=== PATIENT | male | born 1970 | race Caucasian/White ===

== ENCOUNTER 2021-10-05 12:48 | Observation (INO) | payer OTHER, SELFPAY ==
[2021-10-05] VITALS (9 sets, daily range): BP systolic 127–174; BP diastolic 55–89; PULSE 65–99; RESP 12–20; TEMP 36.1–37; O2SAT 96–100; BMI 29.5
--- NOTE | 2021-10-05 | ECG_ITS ---
Test Reason : chest pain Blood Pressure : / mmHG Vent. Rate : 075 BPM Atrial Rate : 075 BPM P-R Int : 140 ms QRS Dur : 090 ms QT Int : 390 ms P-R-T Axes : 037 013 076 degrees QTc Int : 435 ms Normal sinus rhythm Normal ECG No previous ECGs available Referred By: Generic ED Physician Electronically Signed By:GAURAV THOMAS MD
--- NOTE | ~2021-10-05 | XR_ITS ---
EXAMINATION: XR CHEST CLINICAL INFORMATION: Chest pain COMPARISON: None TECHNIQUE: Portable upright AP view of the chest was obtained. FINDINGS: Lungs clear. No pneumothorax, pleural reaction, airspace consolidation, or effusion. The costophrenic sulci are clear. The heart is normal in size. The hilar and mediastinal contours are normal. No acute bony abnormality. XR/XR chest 1V IMPRESSION: Unremarkable examination.
--- NOTE | 2021-10-05 13:06 | ED_ITS ---
HPI - Chest Pain General Chief Complaint: Chest Pain Stated Complaint: chest pain Time Seen by Provider: 10/05/21 13:06 Source: patient Mode of arrival: ambulatory Limitations: no limitations History of Present Illness MD complaint: chest pain, chest heaviness and chest discomfort Onset (ago): day(s) (started Tuesday ) Timing of current episode: other (present but then when he exerts himself it gets much worse) Prior episodes: Yes Onset: during exertion Pain location: substernal and left chest Pain radiation: left arm Severity: moderate Quality: heaviness Relieving factors: rest Exacerbating factors: exertion Associated symptoms: diaphoresis and dyspnea Treatment prior to arrival: none Related Data Home Medications Medication Instructions Recorded Confirmed fenofibrate nanocrystallized 145 1 tab PO BEDTIME 10/05/21 10/05/21 mg tablet Allergies Allergy/AdvReac Type Severity Reaction Status Date / Time No Known Allergies Allergy Verified 10/05/21 13:03 Review of Systems Review of Systems: Constitutional : No Weight loss, No Fever, No Chills ENT/Mouth : No sore throat, No Rhinorrhea Eyes: No Eye Pain, No Swelling Cardiovascular : pos Chest Pain, pos SOB, no Dyspnea on Exertion, No Orthopnea, No Edema, No Palpitations Respiratory : No Cough, No Sputum Gastrointestinal : no Nausea, No Vomiting, No Diarrhea, No abdominal Pain, No Hematochezia, No Melena Genitourinary : No Dysuria, No Urinary Frequency Musculoskeletal : No joint pain, No Myalgias, No Joint Swelling Skin : No Skin Lesions, No rash Neuro : No Weakness, No Numbness, No Dizziness, No Headache Psych : No Anxiety/Panic, No Depression Heme/Lymph: No Bruising, No Lymphadenopathy Endocrine : No Polyuria, No Polydipsia All other systems reviewed and are negative [facility] Past Medical History Attestation statement: The following information was validated with the patient. Medical History (Updated 10/05/21 @ 15:48 by Marci Ceja NP) HLD (hyperlipidemia) Surgical History (Updated 10/05/21 @ 15:48 by Marci Ceja NP) No pertinent past surgical history Family History Family History (Updated 10/05/21 @ 15:47 by Marci Ceja NP) Paternal Uncle CAD (coronary artery disease) Social History Social History (Updated 10/05/21 @ 13:20 by Bertha Fuentes DO) Household Members: Spouse and Children Housing: House Patient Tobacco Use Status: Former Tobacco user Quit Date: quit 3 years ago Use of substances other than those prescribed or required for medical reasons: No Have you been hit, kicked, punched, or otherwise hurt by someone within the past year? If so, by whom?: No Do you feel safe in your current relationship?: Yes Is there a partner from a previous relationship who is making you feel unsafe no w?: No Are you made to feel afraid or neglected: No Advance Directives: Yes Advance Directives Information Provided: No Advance Directives on File: No Advance Directives Date on File: 10/05/21 Do you have thoughts of harming others: None Do you have a plan to hurt others: No Plan Recently lost weight without trying: No Nutrition Risks: No Nutritional Risk Poor oral hygiene: No service: No Current occupational status: employed Physical Exam Vital Signs: Vital Signs: Last Vital Signs Temp 96.9 F 10/05/21 19:15 Pulse 73 10/05/21 19:15 Resp 20 10/05/21 19:15 BP 156/55 H 10/05/21 19:15 Pulse Ox 100 10/05/21 19:15 BMI result Body Mass Index 29.5 Appearance: Alert. Oriented X3. No acute distress. Eyes: Pupils equal, round and reactive to light. ENT: Pharynx normal. Neck: Normal inspection. Neck supple. CVS: Normal heart rate and rhythm. Pulses normal. Respiratory: No respiratory distress. Breath sounds normal. Abdomen: Soft and non-tender. Skin: Skin warm and dry. Normal skin color. Normal skin turgor. Extremities: No lower extremity edema. No calf ttp Neuro: Oriented X 3. No motor deficit. No sensory deficit. Course Course Course Narrative: chest pain resolved with nitro Dr. Caro aware admit for serial troponins, given ASA MDM - Chest Pain MDM Narrative Medical decision making narrative: 51 yo male former smoker, HLD, + fam hx in several uncles with CAD, presents with exertional chest pain particularly when he was riding his bike on Tuesday up a hill he noted chest pain with dyspnea and diaphoresis that improved with rest. If he exerts himself the chest pain returns along with other symptoms. His symptoms are obviously concerning at this time. Will obtain labs, CXR< troponin, COVID swab - will admit for ACS rule out after discussion with cardiology. Lab Data Result diagrams: 10/05/21 15:17 10/05/21 14:09 Labs: Lab Results 10/05/21 10/05/21 10/05/21 Range/Units 13:49 13:49 13:49 WBC (4.8-10.8) X10*3/uL RBC (4.60-5.80) X10*6/uL Hgb (14.0-18.0) g/dl Hct (42.0-52.0) % MCV (80.0-98.0) fL MCH (27.0-33.0) pg MCHC (31.0-36.0) g/dl RDW (11.0-16.0) % Plt Count (160-400) X10*3/uL MPV (9.4-12.4) fL Immature Gran % (Auto) (0.0-0.4) % Neut % (Auto) (45-73) % Lymph % (Auto) (20-40) % [place] % (Auto) (2-11) % Eos % (Auto) (0-4) % Baso % (Auto) (0-2) % Lymph # (Auto) (1.2-4.9) X10*3/uL [place] # (Auto) (0.1-1.2) X10*3/uL Eos # (Auto) (0.0-0.4) X10*3/uL Baso # (Auto) (0.0-0.2) X10*3/uL Abs Immat Gran (auto) (0.00-0.03) X10*3/uL Absolute Neuts (auto) (2.0-8.3) x10*3/uL Absolute Nucleated RBC (0.0-0.012) X10*3/uL Nucleated RBC % (auto) (0.0-0.2) /100WBC PT 11.3 (9.9-13.0) SEC INR 1.0 (0.9-1.1) APTT 35.0 (24.1-38.0) SEC Sodium (135-145) mmol/L Potassium (3.3-5.1) mmol/L Chloride (96-108) mmol/L Carbon Dioxide (22-29) mmol/L Anion Gap (12-20) BUN (9-16) mg/dL Creatinine (0.5-1.4) mg/dL Estim Creat Clear Calc Estimated GFR Random Glucose (60-115) mg/dL Calcium (8.4-10.2) mg/dL Magnesium (1.6-2.6) mg/dL Total Bilirubin (0.0-1.0) mg/dL Direct Bilirubin (0.0-0.5) mg/dL AST (5-37) U/L ALT (0-40) U/L Alkaline Phosphatase (39-117) U/L Troponin I High Sens < 3.5 (<3.5-35.0) ng/L B-Natriuretic Peptide 11 (<100) pg/mL Total Protein (6.5-8.0) g/dL Albumin (3.5-5.0) g/dL COVID-19 (ANALI) Negative (Negative) COVID-19 Clin Com See Note 10/05/21 10/05/21 Range/Units 14:09 15:17 WBC 6.2 (4.8-10.8) X10*3/uL RBC 4.31 L (4.60-5.80) X10*6/uL Hgb 12.7 L (14.0-18.0) g/dl Hct 38.6 L (42.0-52.0) % MCV 89.6 (80.0-98.0) fL MCH 29.5 (27.0-33.0) pg MCHC 32.9 (31.0-36.0) g/dl RDW 12.0 (11.0-16.0) % Plt Count 328 (160-400) X10*3/uL MPV 9.8 (9.4-12.4) fL Immature Gran % (Auto) 0.2 (0.0-0.4) % Neut % (Auto) 49.0 (45-73) % Lymph % (Auto) 38.2 (20-40) % [place] % (Auto) 10.4 (2-11) % Eos % (Auto) 1.1 (0-4) % Baso % (Auto) 1.1 (0-2) % Lymph # (Auto) 2.4 (1.2-4.9) X10*3/uL [place] # (Auto) 0.6 (0.1-1.2) X10*3/uL Eos # (Auto) 0.1 (0.0-0.4) X10*3/uL Baso # (Auto) 0.1 (0.0-0.2) X10*3/uL Abs Immat Gran (auto) 0.01 (0.00-0.03) X10*3/uL Absolute Neuts (auto) 3.0 (2.0-8.3) x10*3/uL Absolute Nucleated RBC 0.000 (0.0-0.012) X10*3/uL Nucleated RBC % (auto) 0.0 (0.0-0.2) /100WBC PT (9.9-13.0) SEC INR (0.9-1.1) APTT (24.1-38.0) SEC Sodium 140 (135-145) mmol/L Potassium 4.3 (3.3-5.1) mmol/L Chloride 108 (96-108) mmol/L Carbon Dioxide 25 (22-29) mmol/L Anion Gap 11 L (12-20) BUN 16 (9-16) mg/dL Creatinine 1.04 (0.5-1.4) mg/dL Estim Creat Clear Calc 92.4 Estimated GFR > 60 Random Glucose 102 (60-115) mg/dL Calcium 9.8 (8.4-10.2) mg/dL Magnesium 2.1 (1.6-2.6) mg/dL Total Bilirubin 0.3 (0.0-1.0) mg/dL Direct Bilirubin < 0.2 (0.0-0.5) mg/dL AST 20 (5-37) U/L ALT 22 (0-40) U/L Alkaline Phosphatase 71 (39-117) U/L Troponin I High Sens (<3.5-35.0) ng/L B-Natriuretic Peptide (<100) pg/mL Total Protein 7.5 (6.5-8.0) g/dL Albumin 4.5 (3.5-5.0) g/dL COVID-19 (ANALI) (Negative) COVID-19 Clin Com ECG Data ECG #1: Attestation: I personally reviewed and interpreted this ECG as follows: ECG interpretation date: 10/05/21 ECG interpretation time: 13:06 Interpretation: Rate: 75 Rhythm: NSR [place]: normal Normal P waves. Normal WILMAN. Normal QRS complex. ST T wave : no CECY, inverted aVL qTC: normal prior studies: none The study has been interpreted contemporaneously by me. . Scores Heart Score History: -2- highly suspicious ECG: -0- normal Age: -1- >45 - <65 Risk factory: -1- 1 or 2 risk factors Troponin: -0- < or = normal limit Score: 4 Risk: 16.6% Discharge Plan Discharge Clinical Impression: Exertional angina Chest pain Qualifiers: Chest pain type: precordial pain Qualified Code(s): R07.2 - Precordial pain Patient Disposition: Admitted As Inpatient
[2021-10-05] MEDS: Aspirin 81 MG TAB.CHEW 324 MG PO (13:34)
[2021-10-05 14:09] LABS: Prothrombin Time 11.3 SEC (9.9-13.0)
[2021-10-05 14:12] LABS: COVID-19 Test Negative (Negative)
[2021-10-05 14:15] LABS: B Type Natriuretic Peptide 11 pg/mL (<100); Troponin-I High Sensitivity < 3.5 ng/L (<3.5-35.0)
[2021-10-05] MEDS: Nitroglycerin 0.4 MG TAB.SUBL SUBLINGUAL (14:29)
--- NOTE | 2021-10-05 14:39 | PHA.MEDREC ---
Pharmacy Consult ? Medication Reconciliation Pharmacy has completed the medication reconciliation. Patient only take fenofibrate at home. Radha Mejia, RanjithD
[2021-10-05 14:45] LABS: Alanine Aminotransferase 22 U/L (0-40); Albumin Level 4.5 g/dL (3.5-5.0); Alkaline Phosphatase 71 U/L (39-117); Anion Gap 11 (12-20); Aspartate Amino Transferase 20 U/L (5-37); Bilirubin Direct < 0.2 mg/dL (0.0-0.5); Bilirubin Total 0.3 mg/dL (0.0-1.0); Blood Urea Nitrogen 16 mg/dL (9-16); Calcium 9.8 mg/dL (8.4-10.2); Carbon Dioxide 25 mmol/L (22-29); Chloride 108 mmol/L (96-108); Creatinine Clr Calc Pharmacy 92.4; Estimated Glomerular Filt Rate > 60; Glucose Random 102 mg/dL (60-115); Magnesium 2.1 mg/dL (1.6-2.6); Potassium 4.3 mmol/L (3.3-5.1); Sodium 140 mmol/L (135-145); Total Protein 7.5 g/dL (6.5-8.0)
[2021-10-05 15:20] LABS: MANUAL DIFF FLAG NO
[2021-10-05 15:24] LABS: Basophils Absolute Auto 0.1 X10*3/uL (0.0-0.2); Basophils Percent Auto 1.1 % (0-2); Eosinophils Absolute Auto 0.1 X10*3/uL (0.0-0.4); Eosinophils Percent Auto 1.1 % (0-4); Hematocrit 38.6 % (42.0-52.0); Hemoglobin 12.7 g/dl (14.0-18.0); Imm Gran Abs Auto 0.01 X10*3/uL (0.00-0.03); Imm Gran Pct Auto 0.2 % (0.0-0.4); Lymphocytes Absolute Auto 2.4 X10*3/uL (1.2-4.9); Lymphocytes Percent Auto 38.2 % (20-40); Mean Corpuscular HGB Conc 32.9 g/dl (31.0-36.0); Mean Corpuscular Hemoglobin 29.5 pg (27.0-33.0); Mean Corpuscular Volume 89.6 fL (80.0-98.0); Mean Platelet Volume 9.8 fL (9.4-12.4); Monocytes Absolute Auto 0.6 X10*3/uL (0.1-1.2); Monocytes Percent Auto 10.4 % (2-11); Platelet Count 328 X10*3/uL (160-400); Red Blood Count 4.31 X10*6/uL (4.60-5.80); White Blood Count 6.2 X10*3/uL (4.8-10.8)
--- NOTE | 2021-10-05 15:44 | P.HPHOSP_ITS ---
History of Present Illness Date of Service: 10/05/21 Attending physician on admission: Ulises Owen Chief Complaint: Chest pain 51-year-old man presented to the ER with complaints of chest pain radiating to his left arm with some associated shortness of breath especially with exertion but has been pretty constant since Tuesday with no resolution but definitely worse with exertion. He reports about 10 years ago he had very similar symptoms and had a full cardiac workup which was negative however they did find that he had thyroid disease. Over the last 10 years he reports that on and off he gets this pain but it goes away but this time it has been present for almost 3 days. He denied any nausea, vomiting, diarrhea, recent illness. He was given nitroglycerin in the ER which did relieve the pain and during the exam he was chest pain-free. In the ER all of his labs were within acceptable limits including troponin of 3.5, EKG with T-wave inversions but no elevations, stable blood pressure, negative COVID, no consolidation or effusion on chest x-ray. In the ER he was given a full dose of aspirin and also the nitroglycerin. We placed on observation for further management and treatment of chest pain. Review of Systems Review of Systems: Denies any recent fever chills or decrease in appetite respiratory denies any shortness of breath coverage production cardiovascular see HPI gastrointestinal denies any dysphagia abdominal pain nausea vomiting or diarrhea genitourinary denies any dysuria frequency or hematuria musculoskeletal denies any joint pain or swelling neuropsych denies any weakness or seizures all other systems reviewed are negative [facility] Medical History (Updated 10/05/21 @ 15:48 by Marci Ceja NP) HLD (hyperlipidemia) Family History (Updated 10/05/21 @ 15:47 by Marci Ceja NP) Paternal Uncle CAD (coronary artery disease) Surgical History (Updated 10/05/21 @ 15:48 by Marci Ceja NP) No pertinent past surgical history Social History (Updated 10/05/21 @ 13:20 by Bertha Fuentes DO) Patient Tobacco Use Status: Former Tobacco user Quit Date: quit 3 years ago Use of substances other than those prescribed or required for medical reasons: No Advance Directives: Yes Advance Directives Information Provided: No Advance Directives on File: No Meds Allergies Allergy/AdvReac Type Severity Reaction Status Date / Time No Known Allergies Allergy Verified 10/05/21 13:03 Active Medications: Current Medications Acetaminophen (Acetaminophen 325 Mg Tablet) 650 mg PO Q6H PRN PRN Reason: Pain, Mild (Pain Scale 1-3) Enoxaparin Sodium (Enoxaparin Sodium 40 Mg/0.4 Ml Syringe) 40 mg SUBCUT Q24H [facility] Ondansetron HCl (Ondansetron Hcl 4 Mg/2 Ml Vial) 4 mg IVPUSH Q8H PRN PRN Reason: Nausea and Vomiting Pharmacy Consult (Consult Rx Perform Med Rec) 1 each MISCELLANE ONCE PRN PRN Reason: Consult order Sodium Chloride (0.9 % Sodium Chloride Flush 3 Ml Syringe) 3 ml IVFLUSH QSHIFT [facility] Home Medications Medication Instructions Recorded Confirmed Last Taken Type fenofibrate nanocrystallized 145 1 tab PO BEDTIME 10/05/21 10/05/21 10/04/21 History mg tablet Physical Exam Vital Signs and Narrative: Vital Signs: Last Vital Signs Temp 98.6 F 10/05/21 14:37 Pulse 85 10/05/21 14:55 Resp 15 10/05/21 14:55 BP 128/81 10/05/21 14:55 Pulse Ox 96 10/05/21 14:55 BMI result Body Mass Index 29.5 Results Labs CBC and Chem 7: 10/05/21 15:17 10/05/21 14:09 Labs: Laboratory Results - last 24 hr 10/05/21 10/05/21 10/05/21 13:49 13:49 13:49 MCV MCH MCHC RDW Plt Count MPV Immature Gran % (Auto) Neut % (Auto) Lymph % (Auto) [place] % (Auto) Eos % (Auto) Baso % (Auto) Lymph # (Auto) [place] # (Auto) Eos # (Auto) Baso # (Auto) Abs Immat Gran (auto) Absolute Neuts (auto) Absolute Nucleated RBC Nucleated RBC % (auto) PT 11.3 INR 1.0 APTT 35.0 Anion Gap Estim Creat Clear Calc Estimated GFR Random Glucose Calcium Magnesium Total Bilirubin Direct Bilirubin AST ALT Alkaline Phosphatase Troponin I High Sens < 3.5 B-Natriuretic Peptide 11 Total Protein Albumin COVID-19 (ANALI) Negative COVID-19 Clin Com See Note 10/05/21 10/05/21 14:09 15:17 MCV 89.6 MCH 29.5 MCHC 32.9 RDW 12.0 Plt Count 328 MPV 9.8 Immature Gran % (Auto) 0.2 Neut % (Auto) 49.0 Lymph % (Auto) 38.2 [place] % (Auto) 10.4 Eos % (Auto) 1.1 Baso % (Auto) 1.1 Lymph # (Auto) 2.4 [place] # (Auto) 0.6 Eos # (Auto) 0.1 Baso # (Auto) 0.1 Abs Immat Gran (auto) 0.01 Absolute Neuts (auto) 3.0 Absolute Nucleated RBC 0.000 Nucleated RBC % (auto) 0.0 PT INR APTT Anion Gap 11 L Estim Creat Clear Calc 92.4 Estimated GFR > 60 Random Glucose 102 Calcium 9.8 Magnesium 2.1 Total Bilirubin 0.3 Direct Bilirubin < 0.2 AST 20 ALT 22 Alkaline Phosphatase 71 Troponin I High Sens B-Natriuretic Peptide Total Protein 7.5 Albumin 4.5 COVID-19 (ANALI) COVID-19 Clin Com Imaging Radiologist's Impressions: Impressions Chest X-Ray 10/05/21 14:27 IMPRESSION: Unremarkable examination. Assessment and Plan (1) Chest pain: Qualifiers: Chest pain type: precordial pain Qualified Code(s): R07.2 - Precordial pain Status: Acute Plan 51-year-old man placed on observation for chest pain that has been ongoing for the last 3 days Chest pain. Seems typical with symptoms lasting 3 days fairly consistent worse with exertion Negative troponin Add aspirin and statin Cardiology to follow may need stress test Pain management Telemetry Check TSH DVT prophylaxis with Lovenox Attending Dr. Owen Full code Quality Stroke Does the patient have a stroke diagnosis?: No VTE Prior VTE?: No VTE Risk Level:: Medical - moderate - high VTE Device Contraindication: Treatment Not Indicated VTE Drug Contraindication: N/A - Med Ordered
[2021-10-05] MEDS: 0.9 % Sodium Chloride Flush 3 ML SYRINGE IVFLUSH ×2 (17:01→19:47)
--- NOTE | 2021-10-05 17:41 | MHC.CM.PN ---
JERMAIN 10/05. A&Ox4. HCP at home. HCP/ Cory Mercer ([phone]). Vax x2/Pfizer. Lives with . Employed. No DME/services. D/C plan: Home without services. to transport home. CM to follow for d/c needs.
[2021-10-05] MEDS: Atorvastatin Calcium 40 MG TABLET PO (19:45)
[2021-10-05] MEDS: Acetaminophen 325 MG TABLET 650 MG PO (19:48)
--- NOTE | 2021-10-06 | CA_ITS ---
Acquisition Time: 2021-10-06 10:48:54 Total Exercise Time: 00:05:26 Test Indications: Chest Pain Medications: Protocol: NIKHIL Max HR: 173 BPM 102% of Pred: 168 BPM Max BP: 204/088 mmHG Max Work Load: 7.0 METS Exercise stress test with exercise 5 min 26 sec of Nikhil protocol, achieving 102% MPHR, with report of 2/10 left chest tightness with discomfort radiating down his left arm, mild sob, without arrythmia, with hypertensive response to exercise with max BP 204/88, with EKG changes meeting criteria for ischemia: hortizontal to upsloping ST depression, 1 mm lead III, 1.5mm lead aVF, V3, V4, V6, 2 mm lead II, V5 which corrects by 1 min recovery. His chest and arm symptoms resolved by 7 min recovery. BP returned to baseline, 138/78 in recovery. Test reviewed with Dr Caro Referred By: Scooby Caro Overread By: RA TAVERAS
[2021-10-06 03:25] VITALS: BP 133/86; PULSE 75; RESP 18; TEMP 36.2; O2SAT 98
[2021-10-06 07:34] VITALS: BP 170/88; PULSE 76; RESP 20; TEMP 36.1; O2SAT 98
[2021-10-06 07:57] LABS: MANUAL DIFF FLAG NO
[2021-10-06 08:03] LABS: Basophils Absolute Auto 0.1 X10*3/uL (0.0-0.2); Basophils Percent Auto 0.9 % (0-2); Eosinophils Absolute Auto 0.1 X10*3/uL (0.0-0.4); Eosinophils Percent Auto 1.4 % (0-4); Hematocrit 42.1 % (42.0-52.0); Hemoglobin 13.6 g/dl (14.0-18.0); Imm Gran Abs Auto 0.01 X10*3/uL (0.00-0.03); Imm Gran Pct Auto 0.2 % (0.0-0.4); Lymphocytes Absolute Auto 3.3 X10*3/uL (1.2-4.9); Lymphocytes Percent Auto 49.5 % (20-40); Mean Corpuscular HGB Conc 32.3 g/dl (31.0-36.0); Mean Corpuscular Hemoglobin 29.2 pg (27.0-33.0); Mean Corpuscular Volume 90.3 fL (80.0-98.0); Mean Platelet Volume 9.5 fL (9.4-12.4); Monocytes Absolute Auto 0.6 X10*3/uL (0.1-1.2); Monocytes Percent Auto 8.6 % (2-11); Neutrophils Absolute Auto 2.6 x10*3/uL (2.0-8.3); Neutrophils Percent Auto 39.4 % (45-73); Platelet Count 374 X10*3/uL (160-400); Red Blood Count 4.66 X10*6/uL (4.60-5.80); Red Cell Distribution Width 12.2 % (11.0-16.0); White Blood Count 6.6 X10*3/uL (4.8-10.8)
[2021-10-06 08:41] LABS: Anion Gap 14 (12-20); Blood Urea Nitrogen 14 mg/dL (9-16); Calcium 9.7 mg/dL (8.4-10.2); Carbon Dioxide 25 mmol/L (22-29); Chloride 106 mmol/L (96-108); Creatinine Clr Calc Pharmacy 97.1; Estimated Glomerular Filt Rate > 60; Glucose Random 90 mg/dL (60-115); Potassium 4.5 mmol/L (3.3-5.1); Sodium 140 mmol/L (135-145)
[2021-10-06] MEDS: 0.9 % Sodium Chloride Flush 3 ML SYRINGE IVFLUSH (09:07)
[2021-10-06] MEDS: Aspirin 81 MG TAB.CHEW PO (09:07)
[2021-10-06] MEDS: amLODIPine Besylate 5 MG TABLET PO (09:07)
--- NOTE | 2021-10-06 10:04 | P.CONCA_ITS ---
History of Present Illness History of Present Illness Date of Service: 10/06/21 Requesting physician: Marci Ceja Consult reason: chest pain Chief complaint: chest pain Narrative: I was consulted to see Enrrique in cardiology consultation today for chest pain. He is a 51-year-old male with prior history of hyperlipidemia question borde rline blood pressure. Patient not on any antihypertensives at home. Tuesday morning he went a biking, 1st time this season and he was pushing up the hill he developed left upper chest discomfort which was described as sharp pressure radiated down his left arm. Symptoms persisted despite his reducing his activity level and persisted for couple of days. The peak symptoms were associated with shortness of breath but his shortness of breath resolved very quickly but that chest discomfort persisted but milder level for couple of days any came to the emergency room as the pain was unrelieved. He has initial EKG was negative for ischemia and his troponin is less than 3.5. However given his exertional nature of chest pain he was admitted for observation. He has had similar exertional chest pain for the last 12 years only when he pushes himself strenuously. He notices that his heart rate goes of quickly and then gets is chest discomfort. He had a myocardial perfusion imaging test in 2009 at [facility] which was negative. Since then he has been treated for hyperlipidemia with fenofibrate. He is worried about family history as his uncle and premature coronary disease. Review of Systems Constitutional: Constitutional: Reports no additional constitutional complaints Eyes: Eyes: Reports no additional eye complaints Cardiovascular: Cardiovascular: Reports chest pain with activity, Denies rapid heart rate, Denies lightheadedness, Denies Loss of Consciousness, Reports dy spnea on exertion and Denies paroxysmal nocturnal dyspnea Respiratory: Respiratory: Reports no additional respiratory complaints and Reports dyspnea on exertion Gastrointestinal: Gastrointestinal: Reports no additional gastrointestinal complaints Genitourinary: Genitourinary: Reports no additional male genitourinary complaints Musculoskeletal: Musculoskeletal: Reports no additional musculoskeletal complaints Integumentary/Breasts: Skin/Breast: Reports system reviewed and no additional complaints, except as docu Neurologic: Reports system reviewed and no additional complaints, except as documented Psychiatric: Psychiatric: Reports no additional psychiatric complaints Hematologic/Lymphatic: Hematologic/Lymphatic: Reports no additional hematologic/lymphatic complaints Allergic/Immunologic: Allergic/Immunologic: Reports no additional allergic/immunologic complaints [facility] Past Medical History Medical History HLD (hyperlipidemia) Family History Family History Paternal Uncle CAD (coronary artery disease) Surgical History Surgical History No pertinent past surgical history Social History Social History Household Members: Spouse and Children Housing: House Patient Tobacco Use Status: Former Tobacco user Quit Date: quit 3 years ago Advance Directives Date on File: 10/05/21 service: No Current occupational status: employed Meds Allergies Allergy/AdvReac Type Severity Reaction Status Date / Time No Known Allergies Allergy Verified 10/05/21 13:03 Active Medications: Current Medications Acetaminophen (Acetaminophen 325 Mg Tablet) 650 mg PO Q6H PRN PRN Reason: Pain, Mild (Pain Scale 1-3) Last Admin: 10/05/21 19:48 Dose: 650 mg Documented by: Aspirin (Aspirin 81 Mg Tab.Chew) 81 mg PO DAILY [facility] Last Admin: 10/06/21 09:07 Dose: 81 mg Documented by: Atorvastatin Calcium (Atorvastatin Calcium 40 Mg Tablet) 40 mg PO BEDTIME [facility] Last Admin: 10/05/21 19:45 Dose: 40 mg Documented by: Enoxaparin Sodium (Enoxaparin Sodium 40 Mg/0.4 Ml Syringe) 40 mg SUBCUT Q24H [facility] Last Admin: 10/05/21 17:01 Dose: Not Given Documented by: Ondansetron HCl (Ondansetron Hcl 4 Mg/2 Ml Vial) 4 mg IVPUSH Q8H PRN PRN Reason: Nausea and Vomiting Pharmacy Consult (Consult Rx Perform Med Rec) 1 each MISCELLANE ONCE PRN PRN Reason: Consult order Sodium Chloride (0.9 % Sodium Chloride Flush 3 Ml Syringe) 3 ml IVFLUSH QSHIFT [facility] Last Admin: 10/06/21 09:07 Dose: 3 ml Documented by: Home Medications Medication Instructions Recorded Confirmed Last Taken Type fenofibrate nanocrystallized 145 1 tab PO BEDTIME 10/05/21 10/05/21 10/04/21 History mg tablet Physical Exam Vital Signs: Vital Signs: Last Vital Signs Temp 96.9 F 10/06/21 07:34 Pulse 76 10/06/21 07:34 Resp 20 10/06/21 07:34 BP 170/88 H 10/06/21 07:34 Pulse Ox 98 10/06/21 07:34 BMI result Body Mass Index 29.5 Const: General: cooperative, comfortable, no acute distress, well developed, alert and awake Nutritional Appearance: well nourished and overweight Orientation/consciousness: patient oriented x3 Limitations: no limitations HEENT: Head: Yes normocephalic and Yes atraumatic Neck: Neck: Yes trachea midline, Yes supple and Yes no JVD Chest: Chest palpation & inspection: normal inspection of the chest Resp: Effort & Inspection: normal respiratory effort Auscultation: clear to auscultation bilaterally Cardio: Jugular venous distension: no JVD Palpation: normal PMI Rate: regular rate Rhythm: regular rhythm Heart sounds: S1 normal heart sound present, S2 normal heart sound present, no click, no gallops and no murmurs GI: Auscultation: normal bowel sounds Skin: General skin exam: no rashes or lesions noted Neuro: General: patient oriented x3 and no focal motor deficits Extrem: General: Yes no clubbing, cyanosis or edema Psych: Appearance: grossly normal Objective Labs and Meds Result diagrams: 10/06/21 07:30 10/06/21 07:30 Lab results: Laboratory Results - last 24 hr 10/05/21 10/05/21 10/05/21 13:49 13:49 13:49 WBC RBC Hgb Hct MCV MCH MCHC RDW Plt Count MPV Immature Gran % (Auto) Neut % (Auto) Lymph % (Auto) [place] % (Auto) Eos % (Auto) Baso % (Auto) Lymph # (Auto) [place] # (Auto) Eos # (Auto) Baso # (Auto) Abs Immat Gran (auto) Absolute Neuts (auto) Absolute Nucleated RBC Nucleated RBC % (auto) PT 11.3 INR 1.0 APTT 35.0 Sodium Potassium Chloride Carbon Dioxide Anion Gap BUN Creatinine Estim Creat Clear Calc Estimated GFR Random Glucose Calcium Magnesium Total Bilirubin Direct Bilirubin AST ALT Alkaline Phosphatase Troponin I High Sens < 3.5 B-Natriuretic Peptide 11 Total Protein Albumin COVID-19 (ANALI) Negative COVID-19 Clin Com See Note 10/05/21 10/05/21 10/06/21 14:09 15:17 07:30 WBC 6.2 6.6 RBC 4.31 L 4.66 Hgb 12.7 L 13.6 L Hct 38.6 L 42.1 MCV 89.6 90.3 MCH 29.5 29.2 MCHC 32.9 32.3 RDW 12.0 12.2 Plt Count 328 374 MPV 9.8 9.5 Immature Gran % (Auto) 0.2 0.2 Neut % (Auto) 49.0 39.4 L Lymph % (Auto) 38.2 49.5 H [place] % (Auto) 10.4 8.6 Eos % (Auto) 1.1 1.4 Baso % (Auto) 1.1 0.9 Lymph # (Auto) 2.4 3.3 [place] # (Auto) 0.6 0.6 Eos # (Auto) 0.1 0.1 Baso # (Auto) 0.1 0.1 Abs Immat Gran (auto) 0.01 0.01 Absolute Neuts (auto) 3.0 2.6 Absolute Nucleated RBC 0.000 0.000 Nucleated RBC % (auto) 0.0 0.0 PT INR APTT Sodium 140 Potassium 4.3 Chloride 108 Carbon Dioxide 25 Anion Gap 11 L BUN 16 Creatinine 1.04 Estim Creat Clear Calc 92.4 Estimated GFR > 60 Random Glucose 102 Calcium 9.8 Magnesium 2.1 Total Bilirubin 0.3 Direct Bilirubin < 0.2 AST 20 ALT 22 Alkaline Phosphatase 71 Troponin I High Sens B-Natriuretic Peptide Total Protein 7.5 Albumin 4.5 COVID-19 (ANALI) COVID-19 [facility] 10/06/21 07:30 WBC RBC Hgb Hct MCV MCH MCHC RDW Plt Count MPV Immature Gran % (Auto) Neut % (Auto) Lymph % (Auto) [place] % (Auto) Eos % (Auto) Baso % (Auto) Lymph # (Auto) [place] # (Auto) Eos # (Auto) Baso # (Auto) Abs Immat Gran (auto) Absolute Neuts (auto) Absolute Nucleated RBC Nucleated RBC % (auto) PT INR APTT Sodium 140 Potassium 4.5 Chloride 106 Carbon Dioxide 25 Anion Gap 14 BUN 14 Creatinine 0.99 Estim Creat Clear Calc 97.1 Estimated GFR > 60 Random Glucose 90 Calcium 9.7 Magnesium Total Bilirubin Direct Bilirubin AST ALT Alkaline Phosphatase Troponin I High Sens B-Natriuretic Peptide Total Protein Albumin COVID-19 (ANALI) COVID-19 Clin Com Imaging Radiologist's impression: Impressions Chest X-Ray 10/05/21 14:27 IMPRESSION: Unremarkable examination. Assessment and Plan (1) Chest pain: Qualifiers: Chest pain type: precordial pain Qualified Code(s): R07.2 - Precordial pain Status: Acute Patient with atypical chest pain, atypical because was prolonged and had negative troponins. Likelihood of cardiac origin is low. However he has persistent recurrent exertional chest pain with multiple risk factors including family history, hyperlipidemia as well as prior history of smoking. Given that he has been hospitalized with exertional chest pain, will perform a treadmill stress test to assess for myocardial ischemia. The cause for his chest pain could be elevated blood pressure which remains uncontrolled. I have given him amlodipine 5 mg. Hopefully his blood pressure will be better controlled P on discharge however given amlodipine with instruction for management of hypertension with monitoring of blood pressure at home. As an outpatient probably thing that he would benefit from a coronary CTA and will be scheduled for the same. Continue fenofibrate for now but more likely that he may need statin therapy based on the findings of coronary CTA. If the stress test is negative patient can be discharged home later. Plan for outpatient follow-up and workup Procedures Date of Service Date of Service: 10/06/21
[2021-10-06 11:46] VITALS: BP 162/97; PULSE 101; RESP 20; TEMP 37; O2SAT 98
--- NOTE | 2021-10-06 14:44 | PM.DS ---
DS: Providers Provider Date of Service: 10/06/21 Date of admission: 10/05/21 15:39 Primary care physician: Gunnar Carson MD Consults: 10/05/21 15:39 Consult to Cardiology Routine Consulting Provider: Scooby Caro Reason for consultation: chest pain Has provider been notified: No Attending physician on discharge: Isauro Suresh Discharging clinician: Marci Ceja DS: Diagnosis Discharge Diagnosis (1) Chest pain: Status: Acute DS: Summary Hospital Course Hospital Course: 51-year-old man presented to the ER with complaints of chest pain radiating to his left arm with some associated shortness of breath especially with exertion but has been pretty constant since Tuesday with no resolution but definitely worse with exertion.? He reports about 10 years ago he had very similar symptoms and had a full cardiac workup which was negative however they did find that he had thyroid disease.? Over the last 10 years he reports that on and off he gets this pain but it goes away but this time it has been present for almost 3 days.? He denied any nausea, vomiting, diarrhea, recent illness.? He was given nitroglycerin in the ER which did relieve the pain and during the exam he was chest pain-free.? In the ER all of his labs were within acceptable limits including troponin of 3.5, EKG with T-wave inversions but no elevations, stable blood pressure, negative COVID, no consolidation or effusion on chest x-ray.? In the ER he was given a full dose of aspirin and also the nitroglycerin.? We placed on observation for further management and treatment of chest pain. Chest pain.? Seems atypical with symptoms lasting 3 days fairly consistent worse with exertion Negative troponin Failed stress test, ischemic changes noted aspirin and statin Plan to [place] [facility] [place] Time Spent with Patient Time attestation: Total time spent providing and/or coordinating discharge services: Discharge coordination time: Greater than 30 minutes Quality: Safe Use of Opioids Does Pt have an Active Cancer Diagnosis on the Problem List?: No Quality: Stroke Does the patient have a stroke diagnosis?: No Physical Exam Vital Signs: Vital Signs: Last Vital Signs Temp 98.6 F 10/06/21 11:46 Pulse 101 H 10/06/21 11:46 Resp 20 10/06/21 11:46 BP 162/97 H 10/06/21 11:46 Pulse Ox 98 10/06/21 11:46 BMI result Body Mass Index 29.5 Appearing in no acute distress head is normocephalic atraumatic eyes pupils are PERRLA sclera is anicteric mouth throat mucous membranes are intact and moist neck is supple no lymphadenopathy, no JVD noted lung sounds are clear to auscultation heart regular rate rhythm, clear S1, S2 positive bowel sounds, abdomen is soft, nontender neuro patient is alert x3, no focal deficits DS: Data Data Completed and Pending Labs on day of discharge: Laboratory Results - last 24 hr 10/05/21 10/05/21 10/06/21 14:09 15:17 07:30 WBC 6.2 6.6 RBC 4.31 L 4.66 Hgb 12.7 L 13.6 L Hct 38.6 L 42.1 MCV 89.6 90.3 MCH 29.5 29.2 MCHC 32.9 32.3 RDW 12.0 12.2 Plt Count 328 374 MPV 9.8 9.5 Immature Gran % (Auto) 0.2 0.2 Neut % (Auto) 49.0 39.4 L Lymph % (Auto) 38.2 49.5 H [place] % (Auto) 10.4 8.6 Eos % (Auto) 1.1 1.4 Baso % (Auto) 1.1 0.9 Lymph # (Auto) 2.4 3.3 [place] # (Auto) 0.6 0.6 Eos # (Auto) 0.1 0.1 Baso # (Auto) 0.1 0.1 Abs Immat Gran (auto) 0.01 0.01 Absolute Neuts (auto) 3.0 2.6 Absolute Nucleated RBC 0.000 0.000 Nucleated RBC % (auto) 0.0 0.0 Sodium 140 Potassium 4.3 Chloride 108 Carbon Dioxide 25 Anion Gap 11 L BUN 16 Creatinine 1.04 Estim Creat Clear Calc 92.4 Estimated GFR > 60 Random Glucose 102 Calcium 9.8 Magnesium 2.1 Total Bilirubin 0.3 Direct Bilirubin < 0.2 AST 20 ALT 22 Alkaline Phosphatase 71 Total Protein 7.5 Albumin 4.5 10/06/21 07:30 WBC RBC Hgb Hct MCV MCH MCHC RDW Plt Count MPV Immature Gran % (Auto) Neut % (Auto) Lymph % (Auto) [place] % (Auto) Eos % (Auto) Baso % (Auto) Lymph # (Auto) [place] # (Auto) Eos # (Auto) Baso # (Auto) Abs Immat Gran (auto) Absolute Neuts (auto) Absolute Nucleated RBC Nucleated RBC % (auto) Sodium 140 Potassium 4.5 Chloride 106 Carbon Dioxide 25 Anion Gap 14 BUN 14 Creatinine 0.99 Estim Creat Clear Calc 97.1 Estimated GFR > 60 Random Glucose 90 Calcium 9.7 Magnesium Total Bilirubin Direct Bilirubin AST ALT Alkaline Phosphatase Total Protein Albumin Discharge Plan Discharge Anticipated Discharge Date/Time: 10/06/21 14:38 Patient Disposition: Xfer [facility] Hospital Discharge Diagnosis: Chest pain exertional angina Referrals: Gunnar Carson MD [Primary Care Provider] - 1 Week Discharge Medications: New atorvastatin 40 mg Tablet 40 mg PO BEDTIME Qty: 30 0RF aspirin 81 mg Tablet,Chewable 81 mg PO DAILY Qty: 30 0RF Continued fenofibrate nanocrystallized 145 mg tablet 1 tab PO BEDTIME 0RF Discharge Orders: Discharge Order (Routine); Ordered 10/06/21 Ordered By: Marci Ceja Diet: advance to usual diet Activity on Discharge: As tolerated Stand Alone Forms: Patient Portal Discharge page Care Plan Goals: resolution of symptoms Health Concerns: chest pain and exertional angina Plan of Treatment: transferred to [facility] for cardiac catheterization Assessment: see discharge summary
--- NOTE | 2021-10-06 15:01 | MHC.CM.PN ---
MALE 51 DX CHEST PAIN Stress test result indicates need for cardiac catheterization. He is discharged to Acute care hospital, [facility] [place] via ALS
[2021-10-06 15:09] VITALS: PULSE 112; RESP 20; TEMP 36.7; O2SAT 97
== END 2021-10-06 19:00 | disposition short-term general hospital (02) ==
LOC: HO.ED 13:42 → HO.EDOVER 15:44 → HO.IMC 16:56
PROVIDERS: Admitting Provider Nurse Practitioner Acute Care; Emergency Provider Emergency Medicine; PCP Internal Medicine; Visit Provider Nurse Practitioner Acute Care
DX: R07.2 Precordial pain (principal); I20.8 Other forms of angina pectoris; R00.1 Bradycardia, unspecified; E78.5 Hyperlipidemia, unspecified; Z87.891 Personal history of nicotine dependence; Z20.822 Contact with and (suspected) exposure to COVID-19; Z79.82 Long term (current) use of aspirin; Z79.899 Other long term (current) drug therapy
CPT/HCPCS: 36415; 71045; 80048; 80076; 83735; 83880; 84484; 85025; 85610; 85730; 87635; 93005; 93017; 96372; 96374; 99219; 99285

== ENCOUNTER → 2021-10-12 15:04 | Outpatient (BNVA) | payer OTHER, SELFPAY | PROVIDERS: PCP Internal Medicine; Referring Provider Internal Medicine; Visit Provider Internal Medicine Cardiovascular Disease | DX: I25.10 Atherosclerotic heart disease of native coronary artery without angina pectoris (principal) ==

== ENCOUNTER 2021-11-13 09:34 | Outpatient (REF) | payer OTHER, SELFPAY ==
[2021-11-13 10:52] LABS: Anion Gap 14 (12-20); Blood Urea Nitrogen 19 mg/dL (9-16); Calcium 9.3 mg/dL (8.4-10.2); Carbon Dioxide 24 mmol/L (22-29); Chloride 107 mmol/L (96-108); Estimated Glomerular Filt Rate > 60; Glucose Fasting 83 mg/dL (60-99); Potassium 4.8 mmol/L (3.3-5.1); Sodium 140 mmol/L (135-145)
== END 2021-11-13 09:35 | disposition home or self-care (01) ==
LOC: HO.LAB 09:34
PROVIDERS: PCP Internal Medicine; Visit Provider Internal Medicine Cardiovascular Disease
DX: R07.2 Precordial pain (principal); I20.8 Other forms of angina pectoris
CPT/HCPCS: 36415; 80048

== ENCOUNTER → 2022-08-03 15:13 | Outpatient (BNVA) | payer OTHER, SELFPAY | PROVIDERS: PCP Internal Medicine; Referring Provider Internal Medicine; Visit Provider Internal Medicine Cardiovascular Disease | DX: Z13.89 Encounter for screening for other disorder (principal) ==

== ENCOUNTER 2023-08-09 14:54 | Outpatient (AMB) | payer OTHER, SELFPAY ==
--- NOTE | 2023-08-09 15:04 | A.OFFVIS_ITS ---
Intake Vital Signs 08/09/23 15:05 Height 5 ft 9 in Weight 207 lb 3.752 oz BMI 30.6 BP 130/80 Blood Pressure Location Lt brachial Position Sitting Pulse 66 Intake Visit Reasons: 1 yr f/up Intake Note: 1 year follow-up with ekg feeling ok Materials Scheduler Required: No Allergies No Known Allergies Allergy (Verified 10/05/21 13:03) Medication List - Last Reconciled 08/09/23 by Scooby Caro MD aspirin 81 mg PO DAILY 90 days atorvastatin 80 mg PO DAILY carvedilol 3.125 mg PO BID 90 days icosapent ethyl (Vascepa) 2 grams (2 x 1 gram) PO BID 90 days HPI HPI Comments 2 History of Present Illness Details Enrrique comes for follow-up. He has been doing well from cardiac perspective. He maintains good level of exercise. Also maintains that treat modification. No recent lipid panel. He is taking all his medications. His blood pressures been well controlled. Denies any exertional chest pain. No worsening shortness of breath. No orthopnea, PND, leg edema. No prolonged palpitation irregular heartbeat. No lightheadedness. [facility] Medical History Benign essential HTN CAD (coronary artery disease) Exertional angina HLD (hyperlipidemia) Surgical History No pertinent past surgical history Family History Paternal Uncle CAD (coronary artery disease) Social History Household Members: Spouse and Children Housing: House Patient Tobacco Use Status: Former Tobacco user Quit Date: quit 3 years ago Advance Directives Date on File: 10/05/21 service: No Current occupational status: employed Review of Systems Const Denies chills, Denies fatigue, Denies fever(s), Denies frequent falls, Denies weakness, Denies weight gain and Denies weight loss ENT Denies dizziness Card Denies chest pain, Denies leg edema, Denies lightheadedness, Denies palpitations, Denies dyspnea, Denies dyspnea on exertion, Denies orthopnea and Denies other (loss of consciousness) Resp Denies cough, Denies dyspnea and Denies dyspnea on exertion GI Denies hematochezia and Denies change in stool character Musc Denies abnormal gait, Denies muscle weakness, Denies numbness, Denies radiating pain into limb and Denies tingling Neuro Denies abnormal gait, Denies dizziness, Denies frequent falls, Denies numbness, Denies tingling and Denies weakness Endo Denies fatigue and Denies palpitations Physical Exam Vital Signs: Last Vital Signs Pulse 66 08/09/23 15:05 BP 130/80 08/09/23 15:05 BMI result Body Mass Index 30.6 Const General: cooperative, comfortable, no acute distress, alert and awake Nutritional Appearance: obese Orientation/consciousness: patient oriented x3 Limitations: no limitations Neck Neck: Yes trachea midline, Yes supple and Yes no JVD Resp Effort & Inspection: normal respiratory effort Auscultation: clear to auscultation bilaterally Cardio Jugular venous distension: no JVD Palpation: normal PMI Rate: regular rate Rhythm: regular rhythm Heart sounds: S1 normal heart sound present, S2 normal heart sound present, no click, no gallops and no murmurs GI Auscultation: normal bowel sounds Neuro General: patient oriented x3 and no focal motor deficits Extrem General: Yes no clubbing, cyanosis or edema Office Procedures EKG Details: EKG shows normal sinus rhythm with normal EKG [id number], Complete Assessment & Plan Assessment & Plan (1) CAD (coronary artery disease): Comment: Non obstructive by cath 09/2021 Code(s): I25.10 - Atherosclerotic heart disease of [place] coronary artery without angina pectoris Plan: Nonobstructive CAD by cardiac catheterization. Doing extremely well at current point time with no exertional symptoms. Continue low-dose aspirin therapy. Currently on dual therapy for lipid modification with atorvastatin and Vascepa. Continue both. Target goal LDL less than 70 mg/dL and triglycerides at least less than 200 mg/dL. Will check lipid panel and CRP in near future. Importance of regular physical activity and diet modification was discussed with him. Continue aggressive blood pressure control. See below (2) Benign essential HTN: Code(s): I10 - Essential (primary) hypertension Plan: Blood pressure is currently well optimized advised to monitor blood pressure at home maintain a log. Goal blood pressure less than 130/84. Low-salt diet was discussed. Advised to participate in regular physical activity and exercise program. Follow up in the clinic in 2 years time, sooner p.r.n.. Thank you for allowing me to partake in his care Orders: Orders Lipid Panel Today I25.10 - Atherosclerotic heart disease of [place] coronary artery without angina pectoris CRP High Sensitivity Today I25.10 - Atherosclerotic heart disease of [place] coronary artery without angina pectoris Lipid Panel 1 Year I25.10 - Atherosclerotic heart disease of [place] coronary artery without angina pectoris CRP High Sensitivity 1 Year I25.10 - Atherosclerotic heart disease of [place] coronary artery without angina pectoris Coding Level of Care Code Est Pt Level 4 (65986) Diagnoses CAD (coronary artery disease) I25.10 Benign essential HTN I10 CPT Codes EKG - CPT: 70921-[id number], Complete ([id number])
[2023-08-09 15:05] VITALS: BP 130/80; PULSE 66; BMI 30.6
== END 2023-08-09 15:34 | disposition home or self-care (01) ==
PROVIDERS: Visit Provider Internal Medicine Cardiovascular Disease
DX: I25.10 Atherosclerotic heart disease of native coronary artery without angina pectoris (principal); I10 Essential (primary) hypertension
CPT/HCPCS: 93010; 99214

== ENCOUNTER → 2023-08-09 14:54 | Outpatient (BNVA) | payer OTHER, SELFPAY | PROVIDERS: Visit Provider Internal Medicine Cardiovascular Disease | DX: I25.10 Atherosclerotic heart disease of native coronary artery without angina pectoris (principal); I10 Essential (primary) hypertension; Z79.82 Long term (current) use of aspirin; Z79.899 Other long term (current) drug therapy | CPT/HCPCS: 93005 ==